=== PATIENT | female | born 1995 | race Hispanic/Latino ===

== ENCOUNTER 2017-08-19 14:00 | Day surgery (SDC) | payer OTHER ==
[2017-08-19] MEDS ORDERED: Iron Sucrose Complex 500 MG, Admixture Fee 1 EACH in Sodium Chloride 0.9% 250 ML 250 ML IVPB SCH (14:30)
[2017-08-19] MEDS ORDERED: Sodium Chloride 0.9% 1,000 ML IV SCH (14:30)
[2017-08-19 14:49] VITALS: BMI 30.7
[2017-08-19] MEDS ORDERED: FLU VACC QS2017-18 36 mo. & older 0.5 ML SYRINGE IM ONE (15:00)
[2017-08-19] MEDS ORDERED: Acetaminophen 500 MG TAB PO SCH (15:45)
[2017-08-19 19:12] VITALS: TEMP 98
== END 2017-08-19 20:15 | disposition home or self-care (01) ==
LOC: L&D/OP 14:00
PROVIDERS: ATTEND Obstetrics & Gynecology
DX: O99.019 Anemia complicating pregnancy, unspecified trimester (principal); D50.9 Iron deficiency anemia, unspecified; Z3A.00 Weeks of gestation of pregnancy not specified; Z88.2 Allergy status to sulfonamides; Z88.1 Allergy status to other antibiotic agents
CPT/HCPCS: 90471; 90682; 96361; 96365; 96366; 96372; 99283; G0008; J1756; J7050; Q2036

== ENCOUNTER 2017-09-28 09:57 | Day surgery (SDC) | payer OTHER ==
[2017-09-28] MEDS ORDERED: Iron Sucrose Complex 500 MG, Admixture Fee 1 EACH in Sodium Chloride 0.9% 250 ML 250 ML IVPB SCH (10:30)
[2017-09-28] MEDS ORDERED: Acetaminophen 500 MG TAB PO SCH (10:30)
[2017-09-28 10:44] VITALS: BMI 33.9
== END 2017-09-28 15:37 | disposition home or self-care (01) ==
LOC: L&D/OP 09:57 → EDSTATUS 10:00 → L&D/OP 15:37
PROVIDERS: ATTEND Obstetrics & Gynecology
DX: O99.019 Anemia complicating pregnancy, unspecified trimester (principal); Z3A.00 Weeks of gestation of pregnancy not specified; Z88.1 Allergy status to other antibiotic agents; Z88.2 Allergy status to sulfonamides
CPT/HCPCS: J1756; J7050

== ENCOUNTER 2017-10-16 18:29 | Inpatient (IN) | payer OTHER ==
[2017-10-16 19:15] VITALS: BMI 35.0
[2017-10-16 19:58] LABS: #Basophils 0.1 thou/uL (0.0-0.2); #Eosinphils 0.1 thou/uL (0.0-0.7); #Lymphocytes 2.1 thou/uL (1.20-3.40); #Monocytes 0.4 thou/uL (0.11-0.59); #Neutrophils 5.6 thou/uL (1.40-6.50); %Basophils 0.7 % (0.0-1.0); %Eosinophils 0.9 % (0.0-10.0); %Lymphocytes 25.1 % (21.0-51.0); %Neutrophils 68.4 % (42.0-75.0); Mean Corpuscular HGB CONC 33.1 g/dL (32.0-36.0); Mean Corpuscular Hemoglobin 26.3 pg (27.0-31.0); Mean Corpuscular Volume 79.5 fl (81.0-99.0); Mean Platelet Volume 8.1 fL (7.4-10.4); Platelet Count 136 thou/uL (130-400); RBC Distribution Width 23.9 % (11.5-14.5); Red Blood Cell (RBC) Count 4.18 mill/uL (4.20-5.40); White Blood Cell (WBC) Count 8.2 thou/uL (4.8-10.8)
[2017-10-16 20:12] LABS: Anisocytosis SLIGHT = 6-15 cells (100X) (0-5/hpf); Hypochromia SLIGHT = 6-15 cells (100X) (0-5/hpf); Large Platelets SLIGHT; MDiff Complete? YES; Ovalocytes SLIGHT = 2-5 cells (100X) (0-1/hpf); PLT Morphology Comment Appears Adequate; Polychromasia SLIGHT = 2-3 cells (100X) (0-2/hpf)
[2017-10-16 20:17] LABS: AST (SGOT) 18 U/L (5-34); Anion Gap 11 mmol/L (10-20); BUN (Urea Nitrogen) 6 mg/dL (7.0-18.7); Calc. Creatinine Clearance 243 mL/min (70-130); Calcium 9.3 mg/dL (7.8-10.44); Carbon Dioxide 19 mmol/L (22-29); Chloride 110 mmol/L (98-107); Estimated GFR-MDRD Greater than 90; Glucose 109 mg/dL (70-105); Potassium 3.6 mmol/L (3.5-5.1); Sodium 136 mmol/L (136-145)
--- NOTE | 2017-10-16 21:39 | PDOC.LDHP ---
Labor and Delivery H&P Chief complaint: other HPI: bp to 140/90 in office with 1+ up. co chase r frontal for a week. no ruq pain. initial bp in unit 140-150 systolic but now 110-120s. prior cs desires tolac Current gestational age (weeks): 39 Due date: 10/23/17 Dating criteria: last menstrual period, first trimester ultrasound Grav: 6 Para: 1 OB History Details: anemia w fe infusions Current complications: gestational hypertension, other Abnormal US findings: No Current medications: pre- vitamins Previous surgical history: low tranverse CS Allergies/Adverse Reactions: Allergies Allergy/AdvReac Type Severity Reaction Status Date / Time sulfamethoxazole Allergy Rash Verified 10/16/17 19:14 [From Bactrim] trimethoprim [From Bactrim] Allergy Hives Verified 10/16/17 19:14 Social history: none - Physical Exam Vital signs reviewed and normal: yes General: NAD Heart: RRR Lungs: nonlabored breathing Extremeties: trace edema FHT: category 1 [place] contractions every: occ - Vaginal Exam cm dilated: 2 Effacement: 75% Station: -1 - OB Labs Blood type: O RH: positive Antibody Screen: negative HIV: negative RPR: negative HEPSAg: negative 1 hour GCT: negative GBS: negative Urine drug screen: not done Rubella: immune - Assessment L&D Assessment: medically indicated induction gest htn for tolac with favorable cx at term - Plan Plan: admit to L&D -: will give mg if bp's increase in labor. jansky for delivery
[2017-10-16] MEDS ORDERED: LR / Pitocin 40 units/1000 ml 1,000 ML IV PRN (22:01)
[2017-10-16] MEDS ORDERED: LR 500 ML/Oxytocin 10 units 500 ML IV SCH (22:01)
[2017-10-16] MEDS ORDERED: Ondansetron HCl/PF 4 MG/2 ML Vial IVP PRN (22:01)
[2017-10-16] MEDS ORDERED: Promethazine HCl 25 MG/ML VIAL IM PRN (22:01)
[2017-10-16] MEDS ORDERED: Zolpidem Tartrate 5 MG TAB PO PRN (22:01)
[2017-10-16] MEDS ORDERED: Lidocaine 1% (PF) 30 ML VIAL SC PRN (22:01)
[2017-10-16] MEDS ORDERED: Lactated Ringer's 1,000 ML IV SCH (22:01)
[2017-10-16] MEDS ORDERED: HYDROcodone/Acetaminophen 5/325 mg Tablet PO PRN ×2 (22:01)
[2017-10-16] MEDS: Lactated Ringer's 1,000 ML IV SCH (22:10)
[2017-10-16 22:47] LABS: Hemoglobin 11.5 g/dL (12.0-16.0); Mean Corpuscular HGB CONC 32.9 g/dL (32.0-36.0); Mean Corpuscular Hemoglobin 26.3 pg (27.0-31.0); Mean Corpuscular Volume 79.9 fl (81.0-99.0); Mean Platelet Volume 7.8 fL (7.4-10.4); Platelet Count 138 thou/uL (130-400); RBC Distribution Width 24.1 % (11.5-14.5); Red Blood Cell (RBC) Count 4.37 mill/uL (4.20-5.40); White Blood Cell (WBC) Count 8.7 thou/uL (4.8-10.8)
[2017-10-16 23:12] LABS: Creatinine, Urine 159.25 mg/dL (47-110)
[2017-10-16 23:15] LABS: Syphilis Antibody Nonreactive (Nonreactive); Syphilis Antibody Index 0.06 S/CO (<1.00 Non-Reactive)
[2017-10-17 00:39] LABS: HBSAg Index 0.25 S/CO (0-0.99); Hep B Surf Ag Non-Reactive S/CO (NonReactive)
[2017-10-17] MEDS ORDERED: Bupivacaine 0.5% 20 ML, Fentanyl 400 MCG in Sodium Chloride 0.9% 72 ML EPIDURAL SCH (02:30)
[2017-10-17] MEDS ORDERED: DISCONTINUE ALL PREVIOUS NARCOTICS FS SCH (02:30)
[2017-10-17] MEDS ORDERED: ePHEDrine/0.9% NaCl/PF SYRINGE 50 mg/10 ml SLOW IVP PRN (03:16)
[2017-10-17] MEDS ORDERED: Promethazine HCl 25 MG/ML VIAL IM PRN (03:16)
[2017-10-17] MEDS ORDERED: Ondansetron HCl/PF 4 MG/2 ML Vial IVP PRN (03:16)
[2017-10-17] MEDS ORDERED: diphenhydrAMINE 50 MG/ML VIAL IVP PRN ×2 (03:16→13:18)
[2017-10-17] MEDS ORDERED: Lactated Ringer's 500 ML IV PRN (03:16)
[2017-10-17] MEDS ORDERED: Naloxone HCl 0.4 mg/ml Vial IVP PRN ×4 (03:16→13:18)
[2017-10-17] MEDS ORDERED: Eucerin (Mineral Oil/Petrolatum,White) 30 gm Jar TOP PRN ×2 (03:16→13:18)
[2017-10-17] MEDS ORDERED: Communication Order-Pharmacy FS SCH ×2 (03:30→13:30)
[2017-10-17] MEDS ORDERED: Fentanyl 4mcg/Marcaine 0.1% Cassette 100 ML EPIDURAL SCH (03:30)
--- NOTE | 2017-10-17 05:54 | PDOC.LDPN ---
Labor & Delivery Progress Note - Subjective Subjective: comfortable - Objective General: NAD Uterine fundus: non tender Dilation: 4 Effacement: 90% Station: 0 FHT: category 1 [place] contractions every: 3 Other exam findings: 200-250 MVU with pit at 4 - Assessment (1) Third trimester Code(s): Z33.1 - STATE, INCIDENTAL Current Visit: No Status: Chronic Comment: Three doses of cytotec administered. Pitocin at 6 ml/hr. SROM at 1630-clear fluid. Epidural at 1400, patient comfortable. Active labor- progressing well. GBS neg. Cont routine care. Plan: continue plan of care, pitocin for augmentation (gest htn tolac at term. continue pitocin)
[2017-10-17] MEDS: Lactated Ringer's 1,000 ML IV SCH ×2 (05:56→12:34)
[2017-10-17] MEDS: Acetaminophen 325 MG TAB PO PRN (11:04)
[2017-10-17] MEDS ORDERED: Bupivacaine 0.25% HCL 30 ML VIAL ONE (11:11)
[2017-10-17] MEDS ORDERED: Lidocaine 2% MPF 10 ML AMP (For Epidural Use) ONE ×2 (11:11→15:55)
[2017-10-17] MEDS ORDERED: Gentamicin Sulfate 120 MG in Premix Bag 1 BAG IVPB SCH (12:00)
[2017-10-17] MEDS ORDERED: Ampicillin 2 GM in Sodium Chloride 0.9% 100 ML IVPB SCH (12:00)
[2017-10-17] MEDS ORDERED: Ampicillin 2 GM, Syringe 5.2 ML in Sterile Water 14.8 ML SLOW IVP SCH (12:00)
[2017-10-17] MEDS ORDERED: Naloxone HCl 0.4 mg/ml Vial IV PRN (13:18)
[2017-10-17] MEDS ORDERED: Bicitra 30 ML UDCUP ONE (13:22)
[2017-10-17] MEDS ORDERED: Morphine PF 1 MG/ML SYR ONE (13:40)
[2017-10-17] MEDS ORDERED: Oxytocin 10 UNITS/ML VIAL ONE (13:40)
[2017-10-17] MEDS ORDERED: Bicitra 30 ML UDCUP PO SCH (13:45)
[2017-10-17] MEDS ORDERED: Adacel (T-DAP) 0.5 ML VIAL IM ONE (13:47)
[2017-10-17] MEDS ORDERED: Simethicone Chewable 80 MG TAB PO PRN (13:47)
[2017-10-17] MEDS ORDERED: Lanolin Ointment 7 GM TUBE TOP PRN (13:47)
[2017-10-17] MEDS ORDERED: diphenhydrAMINE 25 MG CAP PO PRN (13:47)
--- NOTE | 2017-10-17 13:54 | PDOC.EVN ---
Event Note - Event Note Event Note: Patient has developed chorioamnionitis and has received treatemnt with Ampicillin and Gentamicin. FHT's is category 2 due to tachycardia but remains with accelerations ans variabilkity. She has had adequate mvu's per iupc of over 200 the majority of the time and has failed to progress past 6 cm since 829. In light of this, will proceed with repeat section due to failure to progress, TOLAC, and chorioamnitis. Continue ampicillin/gentamicin-add clindamycin after delivery..
[2017-10-17] MEDS ORDERED: LR w/ Pitocin 40 units/1000 ML BAG IV SCH (14:00)
--- NOTE | 2017-10-17 14:36 | PDOC.OPDEL ---
OB Operative/Delivery Note Delivery Dr/Surgeon: Sam Assist: Christian Pre-Delivery Diagnosis: arrest of dilation, other (Labor induction for mild gestational htn chorioamnionitis prior c/s-TOLAC) Anesthesia: epidural - Findings A Weight: 7 lb 10 oz - 1 min: 8 - 5 min: 9 - Additional Findings/Plan Placenta delivered: manual removal findings: low transverse hysterotomy without extension, normal uterus, normal tubes, normal ovaries Estimated blood loss: 500ml Compilations/Other Findings: none
[2017-10-17] MEDS: Ibuprofen 800 MG TAB PO SCH ×2 (14:45→21:55)
--- NOTE | 2017-10-17 14:54 | OP ---
DATE OF PROCEDURE: 10/17/2017 PREOPERATIVE DIAGNOSES: 1. A 22-year-old female A4 at 39 weeks gestation. 2. Mild gestational hypertension, status post labor induction trial. 3. Previous section with trial of labor. 4. Failure to progress at 6 cm. 5. Chorioamnionitis. POSTOPERATIVE DIAGNOSES: 1. A 22-year-old female A4 at 39 weeks gestation. 2. Mild gestational hypertension, status post labor induction trial. 3. Previous section with trial of labor. 4. Failure to progress at 6 cm. 5. Chorioamnionitis. PROCEDURE PERFORMED: Repeat low transverse section without extension. SURGEON: Marissa Vargas M.D. FITTER HELPER: Hayder Gonzales M.D. ANESTHESIA: Epidural. ESTIMATED BLOOD LOSS: 500 mL. COMPLICATIONS: None. COUNTS: Correct x2. ANTIBIOTICS: Ampicillin, gentamicin. FINDINGS: 1. Vigorous female , clear amniotic fluid, vertex presentation, Apgars 8 and 9, weight 7 pounds 10 ounces. 2. Normal bilateral fallopian tubes and ovaries. 3. Thin lower uterine segment reinforced with hysterotomy closure. 4. Clear urine present in Pimentel catheter post-procedure. COUNTS: Correct x2. COMPLICATIONS: None. DISPOSITION: To recovery room stable. In addition, placenta was sent for pathology due to chorioamnionitis. DESCRIPTION OF OPERATIVE PROCEDURE: The patient previously received informed consent in regards to yolanda gan. She was taken back to the operating room where she received an adequate dosing of her epidur al. She was placed in the supine position, prepped and draped in usual sterile fashion. At this scooby e, a Pfannenstiel incision was made through the previous scar site. It was carried down the fascia. Fascia was nicked in the midline. Fascial incision was extended bilaterally with curved Bryan scisso rs. The rectus fascia was then dissected superiorly and inferiorly off the rectus muscle bellies. R ectus muscle bellies were divided in the midline. The peritoneal cavity was entered. An Dilan O re tractor was then placed. Vesicouterine peritoneal bladder flap was created in usual fashion. A 2 cm hysterotomy incision was made in the lower uterine segment. This was extended via finger fractionat ion. The baby was then delivered in the vertex presentation. Mouth and nares were bulb suctioned on the abdomen. The cord was doubly clamped and cut and the baby was handed to the data management engineer, Dr. Kumari who was in attendance. Usual cord blood was obtained and placenta was manually extracted and sent to pathology. The uterus was externalized, cureted any remaining placental fragments with dry l aparotomy sponge. The hysterotomy incision edges were grasped with ring forceps and then the hystero renan closure was carried out with #1 Monocryl in running locking fashion reinforcing the thin portion s gathering the myometrium into a good closure line. The hysterotomy incision was then inspected and noted to be hemostatic. The uterus was returned back into the abdomen. Pelvis was irrigated and santiago ctioned. Again, hysterotomy and closure line was noted to be hemostatic. The Dilan O retractor was removed and again the pelvis was inspected for hemostasis and this was confirmed. The rectus muscle bellies were noted to be hemostatic prior to fascial closure. The fascia was closed with 0 PDS sutu re x2 in running continuous fashion. Subcutaneous tissue was irrigated and noted to be hemostatic pr ior to skin approximation with cori. The surgery was terminated and no anesthetic or surgical com plications.
[2017-10-17] MEDS: Clindamycin/D5W 900 MG in Premix Bag 1 BAG IVPB SCH ×2 (15:00→21:30)
[2017-10-17] MEDS: Ketorolac Tromethamine 30 MG/ML VIAL IVP PRN ×2 (15:17→21:33)
[2017-10-17] MEDS ORDERED: Morphine 10 MG/ML VIAL ONE (15:36)
[2017-10-17] MEDS ORDERED: Lidocaine 1% PF 5 ML VIAL ONE (15:55)
[2017-10-17] MEDS ORDERED: Morphine 10 MG/ML VIAL SLOW IVP SCH (16:00)
[2017-10-17] MEDS: Gentamicin Sulfate 80 MG in Premix Bag 1 BAG IVPB SCH (19:47)
[2017-10-17] MEDS: Docusate Calcium (SURFAK) 240 MG CAP PO SCH (21:29)
[2017-10-17] MEDS: Ferrous Sulfate 325 MG TAB PO SCH (21:55)
[2017-10-18] MEDS: Ibuprofen 800 MG TAB PO SCH ×3 (04:02→21:41)
[2017-10-18] MEDS: Gentamicin Sulfate 80 MG in Premix Bag 1 BAG IVPB SCH ×3 (04:02→20:17)
[2017-10-18] MEDS: Ketorolac Tromethamine 30 MG/ML VIAL IVP PRN ×2 (04:02→09:56)
[2017-10-18] MEDS: Clindamycin/D5W 900 MG in Premix Bag 1 BAG IVPB SCH ×3 (05:52→21:41)
--- NOTE | 2017-10-18 06:02 | PDOC.PP ---
Post Progress Note Post Day #: POD#2 Subjective: Resting comfortably PO intake tolerated: no Flatus: no Ambulation: yes Vital Signs (12 hours) Temp Pulse Resp BP 10/18/17 04:20 98.5 F 107 H 16 120/65 10/17/17 23:36 97.8 F 99 16 109/58 L 10/17/17 19:15 98.0 F 112 H 18 113/59 L Weight Weight 98.43 kg - Physical Examination General: NAD Abdominal: no distention Extremities: negative homans (B) Skin: CS incision dry & intact Psychiatric: A&Ox3 Result Diagrams: 10/16/17 22:24 10/16/17 19:46 Additional Labs: Post Labs Blood Type O POSITIVE 10/16/17 22:24 Hep Bs Antigen Non-Reactive S/CO (NonReactive) 10/16/17 22:03 - Assessment/Plan Doing well s/p repeat C/S. Margarito is out. Ambulate.
[2017-10-18 06:42] LABS: Hemoglobin 8.8 g/dL (12.0-16.0); Mean Corpuscular Hemoglobin 26.2 pg (27.0-31.0); Mean Corpuscular Volume 81.7 fl (81.0-99.0); Mean Platelet Volume 7.6 fL (7.4-10.4); Platelet Count 107 thou/uL (130-400); RBC Distribution Width 23.7 % (11.5-14.5); Red Blood Cell (RBC) Count 3.35 mill/uL (4.20-5.40); White Blood Cell (WBC) Count 11.8 thou/uL (4.8-10.8)
[2017-10-18] MEDS: Docusate Calcium (SURFAK) 240 MG CAP PO SCH ×2 (08:55→20:17)
[2017-10-18] MEDS: Ferrous Sulfate 325 MG TAB PO SCH ×2 (08:55→20:17)
[2017-10-18] MEDS: Prenatal Vitamin 1 TAB PO SCH (08:55)
[2017-10-18] MEDS ORDERED: Sodium Chloride 0.9% 20 ML ONE (09:54)
[2017-10-18] MEDS ORDERED: Sodium Chloride 0.9% 10 ML ONE ×2 (15:51→20:09)
[2017-10-18] MEDS: Acetaminophen 325 MG TAB PO PRN (23:34)
[2017-10-19] MEDS: Gentamicin Sulfate 80 MG in Premix Bag 1 BAG IVPB SCH ×2 (04:08→12:27)
[2017-10-19] MEDS: Ibuprofen 800 MG TAB PO SCH (05:55)
[2017-10-19] MEDS: Clindamycin/D5W 900 MG in Premix Bag 1 BAG IVPB SCH (05:56)
--- NOTE | 2017-10-19 08:04 | PDOC.PP ---
Post Progress Note Post Day #: 2 PO intake tolerated: yes Flatus: yes Ambulation: yes Vital Signs (12 hours) Temp Pulse Resp BP BP 10/19/17 04:05 97.8 F 99 16 122/73 10/18/17 23:48 98.0 F 97 16 114/63 10/18/17 20:30 98.0 F 94 20 114/55 L Weight Weight 217 lb - Physical Examination General: NAD Cardiovascular: no m/r/g, RRR Respiratory: clear to auscultation bilaterally, non-labored breathing Abdominal: + bowel sounds, lochia, no distention, appropriately TTP Result Diagrams: 10/18/17 05:21 10/16/17 19:46 Additional Labs: Post Labs Blood Type O POSITIVE 10/16/17 22:24 Hep Bs Antigen Non-Reactive S/CO (NonReactive) 10/16/17 22:03 - Assessment/Plan doing well post op day 2-3 afebrile. d/c home today cori out this 10/22 6 week post
[2017-10-19] MEDS: Docusate Calcium (SURFAK) 240 MG CAP PO SCH (10:10)
[2017-10-19] MEDS: Prenatal Vitamin 1 TAB PO SCH (10:11)
[2017-10-19] MEDS: Ferrous Sulfate 325 MG TAB PO SCH (10:11)
[2017-10-19] MEDS ORDERED: Measles/Mumps/Rubella 10 MCG/0.5 ML VIAL SC ONE (10:45)
[2017-10-19 12:40] VITALS: BP 126/70; TEMP 97.9
== END 2017-10-19 13:10 | disposition home or self-care (01) | DRG 765 ==
LOC: L&D/OP 18:29 → L&D 21:39 → 3SW 10-17 17:15
PROVIDERS: ADMIT Obstetrics & Gynecology; ATTEND Obstetrics & Gynecology
PROC: 3E0P7VZ Introduction of Hormone into Female Reproductive, Via Natural or Artificial Opening (ICD-10-PCS; 2017-10-16)
PROC: 3E033VJ Introduction of Other Hormone into Peripheral Vein, Percutaneous Approach (ICD-10-PCS; 2017-10-16)
PROC: 10D00Z1 Extraction of Products of Conception, Low, Open Approach (ICD-10-PCS; principal; 2017-10-17)
DX: O13.3 Gestational [pregnancy-induced] hypertension without significant proteinuria, third trimester (principal); O41.1230 Chorioamnionitis, third trimester, not applicable or unspecified; O62.0 Primary inadequate contractions; O34.211 Maternal care for low transverse scar from previous cesarean delivery; O66.41 Failed attempted vaginal birth after previous cesarean delivery; Z88.2 Allergy status to sulfonamides; Z23 Encounter for immunization; Z3A.39 39 weeks gestation of pregnancy; Z37.0 Single live birth
CPT/HCPCS: 36415; 51702; 59025; 80048; 81003; 82570; 84156; 84450; 85025; 85027; 86780; 86850; 86900; 86901; 87340; 88307; 90707; 99285; A4216; J0290; J0595; J1580; J1885; J2001; J2175; J2270; J2274; J2590; J3010; J3490; J7050; J7120; S0020

== ENCOUNTER 2018-09-17 14:48 | Outpatient (CLI) | payer MEDICAID ==
--- NOTE | 2018-09-17 15:51 | ULT ---
ULTRASOUND EARLY OBSTETRICAL: 09/17/18 HISTORY: 22-year-old female presents for evaluation of anatomy, size and dates. FINDINGS: Intrauterine gestational sac. pole crown-rump length 3.4 cm: 10w,3d. heart rate 134 bpm. No subchorionic hemorrhage. No free fluid in the cul-de-sac. Bilateral ovaries are normal in size, with no evidence of corpus luteal cysts. Too early to evaluate anatomy. IMPRESSION: Live first trimester intrauterine gestation estimated to be 10 weeks, 3 days gestational age. POS: TPC
== END 2018-09-17 14:49 | disposition home or self-care (01) ==
LOC: BICULT 14:48
PROVIDERS: ATTEND Nurse Practitioner
DX: O09.91 Supervision of high risk pregnancy, unspecified, first trimester (principal); Z3A.10 10 weeks gestation of pregnancy
CPT/HCPCS: 76856

== ENCOUNTER 2018-11-30 13:28 | Outpatient (CLI) | payer OTHER ==
--- NOTE | 2018-11-30 14:49 | ULT ---
OBSTETRIC SONOGRAM: HISTORY: Second trimester gestation. evaluation. FINDINGS: Multiple transabdominal sonographic views. Single intrauterine gestation in variable presentation. Gr keena 0 placenta is posterior. Amniotic fluid is within normal limits. No gross intracranial abnormalities. spine and kidneys are intact as visualized. Three-vessel cord shows a normal ins ertion. Four-chamber heart shows motion at 130 bpm. Cervix is closed and 4.2 cm. Measurements are as follows: Biparietal diameter 20 weeks 0 days Head circumference 20 weeks 3 days Abdominal circumference 20 weeks 6 days Femur length 21 weeks 4 days Hadlock 76 percentile. Estimated date of delivery based on today's sonogram 04/14/2019. IMPRESSION: Single viable intrauterine gestation with estimated gestational age based on today's sonogram of 20 w eeks 5 days. No significant abnormalities are demonstrated. Transcribed Date/Time: 11/30/2018 3:19 PM
== END 2018-11-30 13:29 | disposition home or self-care (01) ==
LOC: BICULT 13:28
PROVIDERS: ATTEND Obstetrics & Gynecology
DX: O09.92 Supervision of high risk pregnancy, unspecified, second trimester (principal); Z3A.20 20 weeks gestation of pregnancy
CPT/HCPCS: 76805

== ENCOUNTER 2019-03-02 08:48 | Outpatient (CLI) | payer OTHER ==
--- NOTE | 2019-03-02 10:25 | ULT ---
OB ULTRASOUND: Date: 03/02/19 HISTORY: growth. FINDINGS: A single, live intrauterine gestation is seen, with measurements corresponding to an estimated gestat ional age of 34 weeks/1 day and CELIA at 04/12/19. The estimated weight measures 2326 gm or 5 lbs 2 oz (56% by Hadlock criteria). measurements are as follows: BPD: 8.29 cm, 33 weeks/3 days HC: 30.79 cm, 34 weeks/3 days AC: 29.55 cm, 33 weeks/4 days FL: 6.80 cm, 35 weeks/0 days heart rate measures 134 beats/minute. JULIETH measures 12.89 cm. Placenta is posterior and to the l eft, without placenta previa. presentation is cephalic. IMPRESSION: Single, live intrauterine of 34 weeks/1 day estimated gestational age and CELIA at 04/12/19. POS: MARIAMA
== END 2019-03-02 08:49 | disposition home or self-care (01) ==
LOC: BICULT 08:48
DX: O09.93 Supervision of high risk pregnancy, unspecified, third trimester (principal); Z3A.34 34 weeks gestation of pregnancy
CPT/HCPCS: 76815

== ENCOUNTER 2019-03-12 09:51 | Day surgery (SDC) | payer OTHER ==
[2019-03-12 10:30] VITALS: BMI 36.1
[2019-03-12] MEDS ORDERED: hydrALAZINE 20 MG/ML VIAL SLOW IVP PRN (12:09)
--- NOTE | 2019-03-12 12:16 | PDOC.FPROB ---
FMR OB H&P: HPI - History of Present Illness Chief Complaint: Back pain, abdominal cramping Indentification: 23 year old at 35.0 wks History of Present Illness: 23 year old at 35.0 wks presents with low back pain and abdominal cramping since last night. She states that she had some difficulty relaxing secondary to the pain. Patient reports that the abdominal cramping would come and go last night but has persisted throughout the morning. She denies vaginal bleeding but does endorse vaginal discharge that is similar to the discharge she has had in the , just in increased amount. Patient also endorses migraine headaches for which she has been prescribed promethazine. She does not like to take the medication because it makes her drowsy. Patient states the back pain is located midline in lower back region. It is worse with ambulation, movements, and when bending over to pick things up. It has been present at different points during the , but appears worse. Patient takes tylenol for the migraines which has not helped the back pain or the migraines. She has not tried ice or heat for the back pain. Patient states she has been having some diarrhea over the last day. She denies any sick contacts, fever, chills. Primary Care Physician: Dr. Dulce Heller FMR OB H&P: Current - Care : 9 Para: [id number] Gestational age: 35.0 wks Due date: 04/16/2019 - OB Labs Blood type: O RH: positive Antibody Screen: negative HIV: negative RPR: negative HepBsAg: negative Rubella: immune Gonorrhea: negative Chlamydia: negative 1 hour gtt: normal FMR OB H&P: History - Past Medical History PMH: Migraine headaches - OB History OB History: Hx LTCS x2 Hx Pre-E in prior Hx SAB x6 - Surgical History Sx History: LTCS x2, first for Pre-E and second for failed TOLAC - Social History Social History: Denies alcohol, tobacco, or drug use FMR OB H&P: Medications - Current Home Medications: Medication Instructions Recorded Confirmed Type [id number]/Iron Fum/Folic 1 each PO DAILY 03/03/16 10/16/17 History [ Tablet] Ferrous Sulfate [Feosol] 325 mg PO BID #0 tab 05/04/16 10/16/17 Rx Acetaminophen [Tylenol Regular 325 mg PO PRN PRN 09/28/17 10/16/17 History Strength] Allergies/Adverse Reactions: Allergies Allergy/AdvReac Type Severity Reaction Status Date / Time sulfamethoxazole Allergy Rash Verified 10/16/17 19:14 [From Bactrim] trimethoprim [From Bactrim] Allergy Hives Verified 10/16/17 19:14 FMR OB H&P: ROS - Review of Systems General: denies: fever/chills, weight/appetite/sleep changes ENT: denies: nasal congestion, rhinorrhea, sore throat Cardiovascular: denies: chest pain, palpitation, edema Respiratory: denies: cough, congestion, shortness of breath Gastrointestinal: reports: abdominal pain, cramping, diarrhea. denies: nausea, vomiting, constipation Genitourinary (Female): reports: vaginal discharge. denies: dysuria, vaginal pain, vaginal bleeding, contractions, vaginal pressure Musculoskeletal: reports: pain (low back pain), tenderness Neurologic: denies: numbness, weakness Integumentary: denies: itching, rash, lesions Hematologic/Lymphatic: denies: prolonged or excessive bleeding Psychological: denies: depression, anxiety FMR OB H&P: Vital Signs - Maternal Vital signs: BP 123/76 Afebrile - Heart Tones Baseline: 140 Variability: moderate Acceleration: present Deceleration: absent [place] contractions every: None FMR OB H&P: Physical Exam - Physical Exam General: NAD, awake, alert and oriented HEENT: EOMI, MMM, grossly normal vision, grossly normal hearing Heart: RRR, pulses present, no edema General: no respiratory distress Abdomen: soft, gravid Deviation from normal: Mildly tender to palpation in abdomen diffusely Musculoskeletal: pulses present, FROM in all four extremities Deviation from normal: Tender to palpation along paraspinal musculature in lower back Neurological: no tremor, no focal deficit Skin: no rash, capillary refill <2 seconds Psychiatric: intact recent and remote memory, good judgement and insight, normal mood and affect - Pelvic Exam SVE: closed/thick/high FMR OB H&P: A/P - Problem List (1) Low back pain Status: Acute Code(s): M54.5 - LOW BACK PAIN (2) Previous delivery affecting Status: Acute Code(s): O34.219 - MATERNAL CARE FOR UNSP TYPE SCAR FROM PREVIOUS DEL (3) Third trimester Status: Chronic Code(s): Z33.1 - STATE, INCIDENTAL Comment: Three doses of cytotec administered. Pitocin at 6 ml/hr. SROM at 1630-clear fluid. Epidural at 1400, patient comfortable. Active labor-progressing well. GBS neg. Cont routine care. Disposition: 23 year old at 35.0 wks presents with low back pain and abdominal cramping 1. Low back pain - Likely MSK in nature - Advised ice/heat along with stretching - No signs/symptoms of infection - Same pain has been present during course of at different times - Abdominal cramping associated with back pain may be related to recent diarrhea vs. very mild, non-palpable contractions 2/2 dehydration - Fluid intake encouraged, and counseled patient on water intake during , particularly given recent diarrhea and [place] heat which may be contributing to increased fluid loss - Cervical exam closed/thick/high, no contractions on monitor - No evidence of PTL - Reactive strip 2. Third trimester - Routine PNC - rLTCS scheduled for 04/04/2019 3. Anemia of - Addressed via primary OB 4. Hx SAB's Dispo: D/c patient home with labor and return precautions. Discussed kick counts. Follow up with primary OB. Discussion: Date/Time: 03/12/19 1210 This H&P was discussed with Dr. Foster who agrees with the above documentation and plan. OBGYN Attending: I have seen and evaluated the patient at [facility]. Case reviewed. No acute clinical need for intervention at this time. OK for discharge Signature: Mari Miller DO PGY-3
== END 2019-03-12 12:15 | disposition home health service (06) ==
LOC: L&D/OP 09:51
PROVIDERS: ATTEND Obstetrics & Gynecology
DX: O99.89 Other specified diseases and conditions complicating pregnancy, childbirth and the puerperium (principal); M54.5 Low back pain; R10.9 Unspecified abdominal pain; O99.013 Anemia complicating pregnancy, third trimester; O99.353 Diseases of the nervous system complicating pregnancy, third trimester; G43.909 Migraine, unspecified, not intractable, without status migrainosus; Z87.59 Personal history of other complications of pregnancy, childbirth and the puerperium; Z3A.35 35 weeks gestation of pregnancy; Z88.2 Allergy status to sulfonamides
CPT/HCPCS: 99282